=== PATIENT | female | born 1965 | race Caucasian/White ===

== ENCOUNTER 2017-12-15 13:06 | Emergency (ER) | payer OTHER ==
[~2017-12-15] VITALS: Ht 165.1 cm; Wt 61.2 kg
[~2017-12-15 13:06] MED LIST: CIPRO 500MG TA500 MG PO; DULOXETINE HCL60 MG PO; KETOROLAC TROME10 M1 PO
[2017-12-15] MEDS ORDERED: IBUPROFEN800 M1 PO (14:29)
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
[2017-12-15] MEDS ORDERED: ACETAMINOPHEN500 M4 PO (14:30)
--- NOTE | 2017-12-15 15:47 | CT SCAN REPORT ---
EXAMINATION: CT PELVIS WITHOUT CONTRAST CLINICAL INFORMATION: Fall, pain, rule out fracture COMPARISON: 02/05/2017, 12/26/2015 TECHNIQUE: Helical scanning was performed with submillimeter collimation through the pelvis. Sagittal and coronal multiplanar 2-D reconstructions were obtained. DLP: 377.44 mGy-cm FINDINGS: No acute fracture is seen. Alignment across the hips is anatomic, with minimal degenerative change along the acetabula. The sacroiliac joints are intact with mild degenerative changes anteriorly. There is mild degenerative change at the pubic symphysis. Patient is status post hysterectomy. The urinary bladder is unremarkable. Included portions of the small and large bowel appear unremarkable. The appendix has a normal appearance. No free fluid is seen. IMPRESSION: No evidence of acute fracture.
[2017-12-15] MEDS ORDERED: PERCOCET 5-3251 EACH PO (15:59)
[2017-12-15 16:00] VITALS: BP 113/65
== END 2017-12-15 16:18 ==
LOC: ERH 13:06
DX: M25.551 Pain in right hip (principal); M25.552 Pain in left hip; R10.2 Pelvic and perineal pain